=== PATIENT | male | born 1990 | race Caucasian/White ===

== ENCOUNTER 2020-10-09 09:50 | Outpatient (REF) | payer OTHER, SELFPAY ==
[2020-10-09 11:57] LABS: Alanine Aminotransferase 45 U/L (0-40); Albumin Level 4.7 g/dL (3.5-5.0); Alkaline Phosphatase 62 U/L (39-117); Anion Gap 11 (12-20); Aspartate Amino Transferase 31 U/L (5-37); Bilirubin Total 0.8 mg/dL (0.0-1.0); Blood Urea Nitrogen 13 mg/dL (9-16); Calcium 9.2 mg/dL (8.4-10.2); Carbon Dioxide 26 mmol/L (22-29); Chloride 104 mmol/L (96-108); Cholesterol 199 mg/dL; Estimated Glomerular Filt Rate > 60; Glucose Fasting 85 mg/dL (60-99); HDL Cholesterol 52 mg/dL; LDL Cholesterol Calculated 123 mg/dl; Sodium 137 mmol/L (135-145); Total Protein 7.1 g/dL (6.5-8.0); Triglycerides 120 mg/dL
[2020-10-09 13:51] LABS: TSH reflex Free T4 1.38 mIU/mL (0.32-4.0)
== END 2020-10-09 09:51 | disposition home or self-care (01) ==
LOC: HO.HMGCLDS 09:50
PROVIDERS: PCP Nurse Practitioner Family; Visit Provider Nurse Practitioner Family
DX: Z13.220 Encounter for screening for lipoid disorders (principal); Z13.29 Encounter for screening for other suspected endocrine disorder
CPT/HCPCS: 80053; 80061; 84443

== ENCOUNTER 2020-10-16 11:30 | Outpatient (REF) | payer OTHER, SELFPAY ==
--- NOTE | 2020-10-16 11:31 | US_ITS ---
EXAMINATION: US ABDOMEN COMPLETE CLINICAL INFORMATION: Elevated liver enzymes. COMPARISON: None TECHNIQUE: Real-time imaging of the abdominal viscera. FINDINGS: PANCREAS: Normal. ABDOMINAL AORTA: The proximal, mid, and distal segments are normal in caliber. INFERIOR VENA CAVA: Visualized portions are normal. LIVER: Normal. The liver is normal in size. The liver contour is normal. Parenchymal echogenicity is normal. No focal hepatic lesion. There is no intrahepatic biliary duct dilatation seen. GALLBLADDER: Normal. The gallbladder is physiologically distended without evidence of stones, sludge, polyps, wall thickening or pericholecystic fluid. COMMON BILE DUCT: Normal in caliber measuring 0.2 cm in diameter. RIGHT KIDNEY: Normal. No hydronephrosis. No renal calculi or focal parenchymal lesions. The kidney measures 9.7 cm in maximum dimension. LEFT KIDNEY: Normal. No hydronephrosis. No renal calculi or focal parenchymal lesions. The kidney measures 10.0 cm in maximum dimension. SPLEEN: Normal. The spleen measures 10.0 cm in maximum dimension. FREE FLUID: None. US/US abdomen complete IMPRESSION: Normal abdominal ultrasound.
== END 2020-10-16 11:31 | disposition home or self-care (01) ==
LOC: HO.HMGCX 11:30
PROVIDERS: PCP Nurse Practitioner Family; Visit Provider Nurse Practitioner Family
DX: R74.8 Abnormal levels of other serum enzymes (principal); R94.5 Abnormal results of liver function studies
CPT/HCPCS: 76700

== ENCOUNTER 2020-10-29 13:04 | Outpatient (REF) | payer OTHER, SELFPAY ==
[2020-10-30 07:48] LABS: HBS Num1 42.37 mIU/mL (0-7.99); HBc Num1 0.07 S/CO (0.00-0.79); HBsAGNum1 0.23 S/CO (0.00-0.99); Hepatitis A Antibody IgM 0.21 Index (0-0.79); Hepatitis B Core Antibody Nonreactive (Nonreactive); Hepatitis B Surface Antigen Negative (Negative); ~HepC Num1 0.06 S/CO (0.00-0.79); ~Hepatitis A Antibody IgM Nonreactive (Nonreactive); ~Hepatitis B Surface Antibody REACTIVE (Nonreactive); ~Hepatitis C Antibody Nonreactive (Nonreactive)
== END 2020-10-29 13:05 | disposition home or self-care (01) ==
LOC: HO.HMGCLDS 13:04
PROVIDERS: PCP Nurse Practitioner Family; Visit Provider Nurse Practitioner Family
DX: R74.8 Abnormal levels of other serum enzymes (principal)
CPT/HCPCS: 86704; 86706; 86709; 86803; 87340

== ENCOUNTER 2021-02-17 10:26 | Outpatient (REF) | payer OTHER, SELFPAY | END 2021-02-17 10:27 | disposition home or self-care (01) | LOC: HO.HMGCLDS 10:26 | PROVIDERS: PCP Nurse Practitioner Family; Visit Provider Internal Medicine | DX: Z20.822 Contact with and (suspected) exposure to COVID-19 (principal) | CPT/HCPCS: 36415; C9803; U0003; U0005 ==

== ENCOUNTER 2021-03-21 08:30 | Outpatient (REF) | payer OTHER, SELFPAY ==
--- NOTE | ~2021-03-21 | XR_ITS ---
EXAMINATION: SHOULDER 4 VIEWS, RIGHT CLINICAL INFORMATION: Right shoulder pain. COMPARISON: None. TECHNIQUE: AP views of the right shoulder were obtained in internal and external rotation. In addition, axillary and Y views were obtained. FINDINGS: There are no fractures or dislocations. The humeral head is seated within a well-formed glenoid. The AC joint is intact. XR/XR shoulder RT min 2V IMPRESSION: Unremarkable right shoulder radiographs.
== END 2021-03-21 08:31 | disposition home or self-care (01) ==
LOC: HO.HMGCX 08:30
PROVIDERS: PCP Nurse Practitioner Family; Visit Provider Hospitalist
DX: M25.511 Pain in right shoulder (principal)
CPT/HCPCS: 73030

== ENCOUNTER 2021-06-27 08:00 | Outpatient (RCR) | payer OTHER, SELFPAY ==
--- NOTE | 2021-05-29 16:07 | MHC.PT.EP ---
[facility] [place] [facility] [place] [facility] [place] [facility] [address] [phone] F: [phone] F: [phone] F: [phone] F: [phone] Physical Therapy Plan of Care Date of Evaluation: Date of Surgery: Diagnosis: This is a 30 yo male presenting to skilled PT with a script for pain in the R shoulder. Assessment: This is a 30 yo male presenting to skilled PT with a script for pain in the R shoulder. Pain started 3 months ago insidiously. States that he is unable to achieve full mobility and strength due to pain. Pain is worse in the AM but better after warming up. RHD. Pain is located anteriorly and slightly lateral. Pain is sharp and reports loss of strength in arm and hand at times. Examination demos decreased end range shoulder motion, decreased scapular and shoulder MMT, impaired clavicle and HH joint mobility and impaired functional tolerance and pain management. He reports that he will probably have limited compliance HEP due to lack of motivation. ? s/s relating to ACJ dysfunction or tendinitis. He would be a good candidate for skilled PT 2x/wk for 5wks to address impairments, implement HEP and optimize functional mobility. Frequency and Duration: The patient will be seen 2x/wk for 6wks Short Term Goals: I and compliant in HEP Patient will demo normal ROM without pain in AM [employer] Goals: Patient will demo an improvement in shoulder and scapular strength to at least 4+/5 without pain Patient will report no pain in AM Patient will improve spadi by at least 10 points Treatment Plan: Modalities to reduce pain, spasms and effusion. Manual therapy to restore motion and function. Therapeutic exercise to improve strength and flexibility. Neuromuscular re-education for posture and balance. Therapeutic activities to return to functional activities of daily living. Electronically signed by: Clarita Sanchez PT Please sign and return to therapist. Thank you for your referral.
--- NOTE | 2021-08-01 07:58 | MHC.PT.EP ---
[facility] [place] [facility] [place] [facility] [place] [facility] [address] [phone] F: [phone] F: [phone] F: [phone] F: [phone] Physical Therapy Plan of Care Date of Evaluation: Date of Surgery: Diagnosis: This is a 30 yo male presenting to skilled PT with a script for pain in the R shoulder. Assessment: This is a 30 yo male presenting to skilled PT with a script for pain in the R shoulder. Pain started 3 months ago insidiously. States that he is unable to achieve full mobility and strength due to pain. Pain is worse in the AM but better after warming up. RHD. Pain is located anteriorly and slightly lateral. Pain is sharp and reports loss of strength in arm and hand at times. Examination demos decreased end range shoulder motion, decreased scapular and shoulder MMT, impaired clavicle and HH joint mobility and impaired functional tolerance and pain management. He reports that he will probably have limited compliance HEP due to lack of motivation. ? s/s relating to ACJ dysfunction or tendinitis. He would be a good candidate for skilled PT 2x/wk for 5wks to address impairments, implement HEP and optimize functional mobility. Frequency and Duration: The patient will be seen 2x/wk for 6wks Short Term Goals: I and compliant in HEP Patient will demo normal ROM without pain in AM [employer] Goals: Patient will demo an improvement in shoulder and scapular strength to at least 4+/5 without pain Patient will report no pain in AM Patient will improve spadi by at least 10 points Treatment Plan: Modalities to reduce pain, spasms and effusion. Manual therapy to restore motion and function. Therapeutic exercise to improve strength and flexibility. Neuromuscular re-education for posture and balance. Therapeutic activities to return to functional activities of daily living. Electronically signed by: Clarita Sanchez PT Please sign and return to therapist. Thank you for your referral.
== END 2021-08-01 07:57 | disposition home or self-care (01) ==
LOC: HO.PTCHIC 08:00
PROVIDERS: PCP Nurse Practitioner Family; Visit Provider Nurse Practitioner Family
DX: M25.511 Pain in right shoulder (principal)
CPT/HCPCS: 97033; 97110; 97140; 97161